=== PATIENT | female | born 1995 | race Caucasian/White ===

== ENCOUNTER → 2018-08-27 | Outpatient (CLI) | payer OTHER ==
[2018-08-27 08:23] LABS: ABSOLUTE EOSINOPHILS # (AUTO) 0.1 10^3/uL (0.0-0.6); ABSOLUTE MONOCYTES (AUTO) 0.3 10^3/uL (0.1-1.4); ABSOLUTE NEUT (AUTO) 2.6 10^3/uL (1.7-8.2); BASOPHILS % (AUTO) 0.5 % (0-2); EOSINOPHILS % (AUTO) 1.2 % (0-6); HEMATOCRIT 40.1 % (36.0-47.0); HEMOGLOBIN 13.9 g/dL (12.0-15.5); LYMPHOCYTES % (AUTO) 49.8 % (13-45); MEAN CORPUSCULAR HEMOGLOBIN 31.3 pg (27.0-33.4); MEAN CORPUSCULAR HGB CONC 34.6 g/dL (32.0-36.0); MEAN CORPUSCULAR VOLUME 91 fl (80-97); MONOCYTES % (AUTO) 5.7 % (3-13); PLATELET COUNT 220 10^3/uL (150-450); RED BLOOD COUNT 4.44 10^6/uL (3.72-5.28); RED CELL DISTRIBUTION WIDTH 12.7 % (11.5-14.0); SEGMENTED NEUTROPHILS % (AUTO) 42.8 % (42-78); TOTAL CELLS COUNTED % (AUTO) 100 %; WHITE BLOOD COUNT 6.1 10^3/uL (4.0-10.5)
[2018-08-27 08:50] LABS: ALANINE AMINOTRANSFERASE 14 U/L (9-52); ALBUMIN 4.4 g/dL (3.5-5.0); ALKALINE PHOSPHATASE 66 U/L (38-126); ANION GAP 10 (5-19); ASPARTATE AMINO TRANSFERASE 16 U/L (14-36); BILIRUBIN,DIRECT 0.2 mg/dL (0.0-0.4); BILIRUBIN,TOTAL 0.2 mg/dL (0.2-1.3); BLOOD UREA NITROGEN 17 mg/dL (7-20); CALCIUM 9.8 mg/dL (8.4-10.2); CARBON DIOXIDE 25 mmol/L (22-30); CHLORIDE 106 mmol/L (98-107); GLUCOSE 90 mg/dL (75-110); POTASSIUM 4.3 mmol/L (3.6-5.0); SODIUM 141.1 mmol/L (137-145); TOTAL PROTEIN 6.9 g/dL (6.3-8.2)
[2018-08-27 08:52] LABS: CHOLESTEROL 137.29 mg/dL (0-200); TRIGLYCERIDES 92 mg/dL (<150)
[2018-08-27 08:59] LABS: DIRECT LDL 65 mg/dL (<100)
[2018-08-27 09:01] LABS: FREE T3 3.72 pg/mL (2.77-5.27)
[2018-08-27 09:04] LABS: ERYTHROCYTE SEDIMENTATION RATE 8 mm/hr (0-20)
[2018-08-27 09:15] LABS: THYROID STIMULATING HORMONE 6.37 uIU/mL (0.47-4.68)
[2018-08-29 07:14] LABS: ANTIMYELOPEROXIDASE (MPO) AB <9.0 U/mL (0.0-9.0)
[2018-08-30 14:07] LABS: REVERSE T3 13.3 ng/dL (9.2-24.1)
== END ==
LOC: OD 07:24
PROVIDERS: ATTEND Internal Medicine Geriatric Medicine
DX: E04.9 Nontoxic goiter, unspecified (principal); Z79.3 Long term (current) use of hormonal contraceptives; Z82.69 Family history of other diseases of the musculoskeletal system and connective tissue
CPT/HCPCS: 36415; 80053; 80061; 83520; 84436; 84443; 84481; 84482; 85025; 85652; 86038; 86140; 86376; 86430

== ENCOUNTER → 2018-08-27 | Outpatient (CLI) | payer OTHER ==
--- NOTE | 2018-08-28 08:17 | RADIOLOGY REPORT (SQ) ---
EXAM DESCRIPTION: U/S THYROID/SFT TISS HD NECK COMPLETED DATE/TIME: 08/27/2018 6:45 pm REASON FOR STUDY: NON TOXIC GOITER E04.9 NONTOXIC GOITER, UNSPECIFIED COMPARISON: None. TECHNIQUE: Dynamic and static davila-scale images acquired of the thyroid gland. Selected additional c olor/power Doppler images recorded. All images stored to PACS. LIMITATIONS: None. FINDINGS: RIGHT LOBE: The right lobe of the thyroid gland measures 5.0 x 1.9 cm, normal size. Diff use marked heterogenicity of the right lobe of the thyroid gland. No cystic or solid masses. LEFT LOBE: The left lobe of the thyroid gland measures 4.7 x 1.5 cm, normal size. Marked diffuse he terogenous echotexture. No cystic or solid masses. ISTHMUS: The isthmus measures 5.4 mm in AP diameter and is prominent in size. Marked diffuse hetero genous echotexture. No cystic or solid masses. OTHER: No other significant finding. IMPRESSION: 1. Marked diffuse heterogenous echotexture to the thyroid gland with a prominent appear ing isthmus. Is there any history of Matt's thyroiditis? Clinical correlation suggested. TECHNICAL DOCUMENTATION: JOB ID: [id number] [employer]- All Rights Reserved Reading location - IP/workstation name: [email or web address]
== END ==
LOC: RAD 17:36
PROVIDERS: ATTEND Internal Medicine Geriatric Medicine
DX: E04.9 Nontoxic goiter, unspecified (principal)
CPT/HCPCS: 76536

== ENCOUNTER → 2018-08-29 | Outpatient (CLI) | payer OTHER | LOC: OD 08:10 | PROVIDERS: ATTEND Internal Medicine Geriatric Medicine | DX: E03.9 Hypothyroidism, unspecified (principal) | CPT/HCPCS: 36415; 84439; 84482; 86376 ==

== ENCOUNTER → 2018-10-21 | Outpatient (CLI) | payer OTHER ==
[2018-10-21 09:59] LABS: FREE T3 6.68 pg/mL (2.77-5.27); FREE T4 (FREE THYROXINE) 0.94 ng/dL (0.78-2.19)
[2018-10-21 10:12] LABS: THYROID STIMULATING HORMONE 0.49 uIU/mL (0.47-4.68)
[2018-10-21 10:12] LABS: TOTAL T3 2.71 ng/mL (0.970-1.69)
== END ==
LOC: OD 07:48
PROVIDERS: ATTEND Internal Medicine Geriatric Medicine
DX: E06.3 Autoimmune thyroiditis (principal)
CPT/HCPCS: 36415; 84436; 84439; 84443; 84480; 84481; 84482; 86376

== ENCOUNTER → 2018-11-01 | Outpatient (CLI) | payer OTHER | LOC: OD 08:03 | PROVIDERS: ATTEND Internal Medicine Geriatric Medicine | DX: E06.5 Other chronic thyroiditis (principal) | CPT/HCPCS: 36415; 86376 ==

== ENCOUNTER → 2019-02-21 | Outpatient (CLI) | payer OTHER ==
[2019-02-21 10:05] LABS: FREE T3 4.97 pg/mL (2.77-5.27); FREE T4 (FREE THYROXINE) 0.61 ng/dL (0.78-2.19)
[2019-02-21 10:18] LABS: THYROID STIMULATING HORMONE 1.79 uIU/mL (0.47-4.68)
== END ==
LOC: OD 08:10
PROVIDERS: ATTEND Internal Medicine Geriatric Medicine
DX: E06.3 Autoimmune thyroiditis (principal)
CPT/HCPCS: 36415; 84436; 84439; 84443; 84481; 86376